=== PATIENT | female | born 1985 | race Caucasian/White ===

== ENCOUNTER 2021-11-24 17:08 | Emergency (ER) | payer OTHER, SELFPAY ==
[2021-11-24 18:41] LABS: Bilirubin Negative (Negative); Blood, Urine Negative (Negative); Clarity Clear (Clear); Glucose, Urine (Dipstick) Normal (Negative); Ketone, Urine Negative (Negative); Leukocyte Negative Leu/uL (Negative); Nitrite Negative (Negative); Protein, Urine (Dipstick) Negative (Neg-Trace); Specific Gravity, Urine 1.001 (1.002-1.036); Urobilinogen Normal mg/dL (Less than 2)
[2021-11-24 18:43] LABS: Pregnancy Test - Urine (BHCG) Negative (Negative); Pregu Control Background? CLEAR/WHITE (CLR/WHITE); Pregu Control Bar Appear? YES (CONTROL BAR); Specific Gravity 1.001 (1.002-1.036)
[2021-11-24 18:56] LABS: #Lymphocytes 1.2 thou/uL (1.20-3.40); #Monocytes 0.4 thou/uL (0.11-0.59); #Neutrophils 5.6 thou/uL (1.40-6.50); %Basophils 0.6 % (0.0-1.0); %Eosinophils 0.6 % (0.0-10.0); %Monocytes 4.8 % (0.0-10.0); Hemoglobin 13.3 g/dL (12.0-16.0); Mean Corpuscular Hemoglobin 29.9 pg (27.0-31.0); Mean Corpuscular Volume 90.5 fL (78.0-98.0); Mean Platelet Volume 8.9 fL (7.4-10.4); Platelet Count 219 thou/uL (130-400); RBC Distribution Width 11.9 % (11.5-14.5); Red Blood Cell (RBC) Count 4.44 mill/uL (4.20-5.40); White Blood Cell (WBC) Count 7.3 thou/uL (4.8-10.8)
[2021-11-24 19:06] LABS: ALT (SGPT) 8 U/L (8-55); AST (SGOT) 15 U/L (5-34); Albumin 4.7 g/dL (3.5-5.0); Alkaline Phosphatase 52 U/L (40-110); Anion Gap 10 mmol/L (10-20); BUN (Urea Nitrogen) 5 mg/dL (7.0-18.7); Bilirubin, Total 0.6 mg/dL (0.2-1.2); Calc. Creatinine Clearance 0 mL/min (70-130); Calcium 9.2 mg/dL (7.8-10.44); Carbon Dioxide 28 mmol/L (22-29); Chloride 105 mmol/L (98-107); Glucose 89 mg/dL (70-105); Potassium 3.8 mmol/L (3.5-5.1); Protein, Total 7.7 g/dL (6.0-8.3); Sodium 139 mmol/L (136-145)
[2021-11-24] MEDS ORDERED: Ketorolac Tromethamine 30 MG/ML VIAL ONE (20:43)
== END 2021-11-24 21:43 | disposition home or self-care (01) ==
LOC: ERS 17:08
DX: R55 Syncope and collapse (principal); S09.90XA Unspecified injury of head, initial encounter; F17.290 Nicotine dependence, other tobacco product, uncomplicated; X58.XXXA Exposure to other specified factors, initial encounter
CPT/HCPCS: 70450; 71045; 80053; 81003; 81025; 84484; 85025; 93005; 96374; J1885

== ENCOUNTER 2022-09-15 14:08 | Emergency (ER) | payer OTHER ==
[2022-09-15 15:53] LABS: #Basophils 0.1 thou/uL (0.0-0.2); #Eosinphils 0.4 thou/uL (0.0-0.7); #Lymphocytes 2.2 thou/uL (1.20-3.40); #Monocytes 0.5 thou/uL (0.11-0.59); #Neutrophils 3.6 thou/uL (1.40-6.50); %Eosinophils 6.6 % (0.0-10.0); %Monocytes 7.2 % (0.0-10.0); %Neutrophils 53.3 % (42.0-75.0); Hemoglobin 12.3 g/dL (12.0-16.0); Mean Corpuscular HGB CONC 33.4 g/dL (32.0-36.0); Mean Corpuscular Hemoglobin 29.7 pg (27.0-31.0); Mean Corpuscular Volume 89.1 fl (78.0-98.0); Mean Platelet Volume 9.6 fL (7.4-10.4); Platelet Count 206 10x3/uL (130-400); RBC Distribution Width 13.3 % (11.5-14.5); Red Blood Cell (RBC) Count 4.13 mill/uL (4.20-5.40); White Blood Cell (WBC) Count 6.8 10x3/uL (4.8-10.8)
[2022-09-15] MEDS ORDERED: Ketorolac Tromethamine 30 MG/ML VIAL ONE (16:03)
[2022-09-15 16:07] LABS: ALT (SGPT) 9 U/L (8-55); AST (SGOT) 15 U/L (5-34); Albumin 3.9 g/dL (3.5-5.0); Alkaline Phosphatase 45 U/L (40-110); Anion Gap 11 mmol/L (10-20); BUN (Urea Nitrogen) 9 mg/dL (7.0-18.7); Bilirubin, Total 0.2 mg/dL (0.2-1.2); Calc. Creatinine Clearance 0 mL/min (70-130); Calcium 8.6 mg/dL (7.8-10.44); Carbon Dioxide 22 mmol/L (22-29); Chloride 112 mmol/L (98-107); Estimated GFR 103; Globulin 2.7 g/dL (2.4-3.5); Glucose 91 mg/dL (70-105); Potassium 4.3 mmol/L (3.5-5.1); Protein, Total 6.6 g/dL (6.0-8.3); Sodium 141 mmol/L (136-145)
[2022-09-15 16:34] LABS: Bacteria/HPF 4+ HPF (None Seen); Bilirubin Negative (Negative); Blood, Urine Negative (Negative); Clarity Turbid (Clear); Glucose, Urine (Dipstick) Normal (Negative); Ketone, Urine Negative (Negative); Leukocyte 250 Leu/uL (Negative); Nitrite Negative (Negative); Protein, Urine (Dipstick) 20 mg/dL (Neg-Trace); RBC/HPF 0-3 HPF (0-3); Specific Gravity, Urine 1.021 (1.002-1.036); Squamous Epithelial Greater than 50 HPF (0-3); Urobilinogen Normal mg/dL (Less than 2); WBC/HPF 0-3 HPF (0-3)
[2022-09-15 16:35] LABS: Pregnancy Test - Urine (BHCG) Negative (Negative); Pregu Control Background? CLEAR/WHITE (CLR/WHITE); Pregu Control Bar Appear? YES (CONTROL BAR); Specific Gravity 1.021 (1.002-1.036)
[2022-09-15] MEDS ORDERED: cefTRIAXone\\ROCEPHIN 1 GM VIAL ONE (17:18)
[2022-09-15] MEDS ORDERED: Acetaminophen 500 MG TAB ONE (19:10)
== END 2022-09-15 19:15 | disposition home or self-care (01) ==
LOC: ERS 14:08
DX: N10 Acute pyelonephritis (principal); F17.290 Nicotine dependence, other tobacco product, uncomplicated
CPT/HCPCS: 36415; 74176; 80053; 81003; 81015; 81025; 85025; 87086; 96365; 96366; 96375; J0696; J1885

== ENCOUNTER 2022-10-14 08:18 | Emergency (ER) | payer OTHER ==
[2022-10-14] MEDS ORDERED: fentaNYL 50 mcg/mL 1 mL Vial ONE ×3 (08:38→10:23)
[2022-10-14] MEDS ORDERED: Metoclopramide HCl 10 MG/2 ML VIAL ONE (08:39)
[2022-10-14] MEDS ORDERED: Dexamethasone 10 MG/ML VIAL ONE (08:39)
[2022-10-14] MEDS ORDERED: Ketorolac Tromethamine 30 MG/ML VIAL ONE (08:39)
== END 2022-10-14 11:03 | disposition home or self-care (01) ==
LOC: ERS 08:18
DX: G43.909 Migraine, unspecified, not intractable, without status migrainosus (principal); F17.290 Nicotine dependence, other tobacco product, uncomplicated
CPT/HCPCS: 96361; 96374; 96375; J1100; J1885; J2765; J3010

== ENCOUNTER 2023-01-24 10:51 | Emergency (ER) | payer OTHER ==
[2023-01-24] MEDS ORDERED: Ketorolac Tromethamine 30 MG/ML VIAL ONE (12:23)
[2023-01-24] MEDS ORDERED: Metoclopramide HCl 10 MG/2 ML VIAL ONE (12:23)
[2023-01-24] MEDS ORDERED: Magnesium 2 GM/50 ML BAG (IN WATER) ONE (12:23)
[2023-01-24] MEDS ORDERED: Acetaminophen 500 MG TAB ONE (12:23)
[2023-01-24] MEDS ORDERED: Dexamethasone 10 MG/ML VIAL ONE (12:23)
[2023-01-24] MEDS ORDERED: diphenhydrAMINE 50 MG/ML VIAL ONE (12:25)
[2023-01-24] MEDS ORDERED: fentaNYL 50 mcg/mL 1 mL Vial ONE (13:31)
== END 2023-01-24 13:43 | disposition home or self-care (01) ==
LOC: ERS 10:51
DX: G43.909 Migraine, unspecified, not intractable, without status migrainosus (principal); F17.210 Nicotine dependence, cigarettes, uncomplicated
CPT/HCPCS: 96365; 96368; 96375; J1100; J1200; J1885; J2765; J3010; J3475

== ENCOUNTER 2023-02-02 00:52 | Emergency (ER) | payer OTHER ==
[2023-02-02] MEDS ORDERED: Metoclopramide HCl 10 MG/2 ML VIAL ONE (03:04)
[2023-02-02] MEDS ORDERED: Ketorolac Tromethamine 30 MG/ML VIAL ONE (03:04)
[2023-02-02] MEDS ORDERED: Dexamethasone 10 MG/ML VIAL ONE (03:08)
[2023-02-02 03:50] LABS: #Eosinphils 0.1 thou/uL (0.0-0.7); #Monocytes 0.7 thou/uL (0.11-0.59); #Neutrophils 3.4 thou/uL (1.40-6.50); %Basophils 0.6 % (0.0-1.0); %Eosinophils 1.9 % (0.0-10.0); %Lymphocytes 36.1 % (21.0-51.0); %Monocytes 10.2 % (0.0-10.0); %Neutrophils 50.9 % (42.0-75.0); Mean Corpuscular HGB CONC 32.3 g/dL (32.0-36.0); Mean Corpuscular Hemoglobin 27.6 pg (27.0-31.0); Mean Corpuscular Volume 85.7 fl (78.0-98.0); Mean Platelet Volume 11.8 fL (7.4-10.4); Platelet Count 225 10x3/uL (130-400); RBC Distribution Width 13.8 % (11.5-14.5); Red Blood Cell (RBC) Count 3.98 mill/uL (4.20-5.40); White Blood Cell (WBC) Count 6.7 10x3/uL (4.8-10.8)
[2023-02-02 04:11] LABS: BHCG - Serum Negative (NEGATIVE); Pregs Control Background? CLEAR/WHITE (CLR/WHITE); Pregs Control Bar Appear? YES (CONTROL BAR)
[2023-02-02 04:20] LABS: ALT (SGPT) 11 U/L (8-55); AST (SGOT) 13 U/L (5-34); Albumin 4.2 g/dL (3.5-5.0); Alkaline Phosphatase 48 U/L (40-110); Anion Gap 12 mmol/L (10-20); BUN (Urea Nitrogen) 14 mg/dL (7.0-18.7); Bilirubin, Total 0.2 mg/dL (0.2-1.2); CK (CPK) 75 U/L (29-168); Calc. Creatinine Clearance 0 mL/min (70-130); Calcium 9.5 mg/dL (7.8-10.44); Carbon Dioxide 26 mmol/L (22-29); Chloride 108 mmol/L (98-107); Estimated GFR 92; Globulin 2.6 g/dL (2.4-3.5); Glucose 86 mg/dL (70-105); Lipase 38 U/L (8-78); Potassium 3.6 mmol/L (3.5-5.1); Protein, Total 6.8 g/dL (6.0-8.3); Sodium 142 mmol/L (136-145)
[2023-02-02 05:22] LABS: Bacteria/HPF None Seen HPF (None Seen); Bilirubin Negative (Negative); Blood, Urine Negative (Negative); CAUTI Indications for Culture Dysuria,urgency,freq; Clarity Clear (Clear); Glucose, Urine (Dipstick) Normal (Negative); Ketone, Urine Negative (Negative); Leukocyte Negative Leu/uL (Negative); Nitrite Negative (Negative); Protein, Urine (Dipstick) Negative (Neg-Trace); RBC/HPF 0-3 HPF (0-3); Specific Gravity, Urine 1.009 (1.002-1.036); Squamous Epithelial 0-3 HPF (0-3); Urobilinogen Normal mg/dL (Less than 2); WBC/HPF 0-3 HPF (0-3); pH, Urine 6.5 (5.0-9.0)
[2023-02-02 05:24] LABS: Urine Culture Reflex No No
== END 2023-02-02 05:31 | disposition home or self-care (01) ==
LOC: ERS 00:52
DX: G43.909 Migraine, unspecified, not intractable, without status migrainosus (principal); Z79.899 Other long term (current) drug therapy; F17.290 Nicotine dependence, other tobacco product, uncomplicated
CPT/HCPCS: 36415; 80053; 81001; 82550; 83690; 84703; 85025; 96365; 96375; J1100; J1885; J2765

== ENCOUNTER 2023-03-16 08:45 | Emergency (ER) | payer OTHER ==
[2023-03-16 10:16] LABS: SARS-CoV-2 NAA Rapid Test DETECTED (NotDetected)
== END 2023-03-16 09:20 | disposition home or self-care (01) ==
LOC: ERS 08:45
DX: J06.9 Acute upper respiratory infection, unspecified (principal); F17.290 Nicotine dependence, other tobacco product, uncomplicated
CPT/HCPCS: 99283

== ENCOUNTER 2024-05-23 15:34 | Emergency (ER) | payer OTHER ==
[2024-05-23] MEDS ORDERED: Dexamethasone 10 MG/ML VIAL ONE (16:53)
[2024-05-23] MEDS ORDERED: Ketorolac Tromethamine 30 MG (1 mL) VIAL ONE (16:53)
[2024-05-23] MEDS ORDERED: Metoclopramide HCl 10 MG (2 mL) VIAL ONE (16:54)
[2024-05-23] MEDS ORDERED: diphenhydrAMINE 50 MG/ML VIAL ONE (17:14)
== END 2024-05-23 18:27 | disposition home or self-care (01) ==
LOC: ERS 15:34
DX: G43.109 Migraine with aura, not intractable, without status migrainosus (principal); F17.290 Nicotine dependence, other tobacco product, uncomplicated
CPT/HCPCS: 96374; 96375; J1100; J1200; J1885; J2765

== ENCOUNTER 2024-06-17 09:37 | Emergency (ER) | payer SELFPAY ==
[2024-06-17] MEDS ORDERED: Acetaminophen 500 MG TAB ONE (10:07)
[2024-06-17] MEDS ORDERED: Dexamethasone 10 MG/ML VIAL ONE (10:07)
[2024-06-17] MEDS ORDERED: diphenhydrAMINE 50 MG/ML VIAL ONE (10:07)
[2024-06-17] MEDS ORDERED: Metoclopramide HCl 10 MG (2 mL) VIAL ONE (10:08)
== END 2024-06-17 11:45 | disposition home or self-care (01) ==
LOC: ERS 09:37
DX: J01.10 Acute frontal sinusitis, unspecified (principal); F17.290 Nicotine dependence, other tobacco product, uncomplicated
CPT/HCPCS: 70450; 96365; 96375; J1100; J1200; J2765

== ENCOUNTER 2024-08-23 10:00 | Emergency (ER) | payer SELFPAY ==
[2024-08-23 10:30] LABS: Bacteria/HPF None Seen HPF (None Seen); Bilirubin Negative (Negative); Blood, Urine 2+ (Negative); CAUTI Indications for Culture Pelvic or flank pain; Clarity Clear (Clear); Glucose, Urine (Dipstick) Normal (Negative); Ketone, Urine Negative (Negative); Leukocyte Negative Leu/uL (Negative); Nitrite Negative (Negative); Pregnancy Test - Urine (BHCG) Negative (Negative); Protein, Urine (Dipstick) Negative (Neg-Trace); RBC/HPF 0-3 HPF (0-3); Specific Gravity, Urine 1.007 (1.002-1.036); Squamous Epithelial 0-3 HPF (0-3); Urobilinogen Normal mg/dL (Less than 2); WBC/HPF 0-3 HPF (0-3); pH, Urine 5.5 (5.0-9.0)
[2024-08-23 10:43] LABS: Pregu Control Background? CLEAR/WHITE (CLR/WHITE); Pregu Control Bar Appear? YES (CONTROL BAR); Specific Gravity 1.007 (1.002-1.036)
[2024-08-23 10:44] LABS: Urine Culture Reflex No No
[2024-08-23] MEDS ORDERED: Ketorolac Tromethamine 30 MG (1 mL) VIAL ONE (12:10)
[2024-08-24 01:36] LABS: Chlamydia by PCR, Vaginal Swab Not Detected (NotDetected); GC by PCR, Vaginal Swab Not Detected (NotDetected)
== END 2024-08-23 14:11 | disposition home or self-care (01) ==
LOC: ERS 10:00
DX: N76.0 Acute vaginitis (principal); F17.290 Nicotine dependence, other tobacco product, uncomplicated
CPT/HCPCS: 81001; 81025; 87480; 87491; 87510; 87591; 87660; 96372; 99283; J1885